=== PATIENT | female | born 1950 | race African-American/Black ===

== ENCOUNTER 2017-02-11 15:40 | Emergency (ER) | payer OTHER ==
[~2017-02-11 15:40] MED LIST: AMLO2.5T PO; BENA40TA PO; FURO40TA PO; GABA300C5 PO; GLIP10TA6 PO; KLOR8TAB PO; METF1000 PO; PRAV20TA2 PO; VITA1000 PO
[2017-02-11 15:43] VITALS: BP 165/85; PULSE 90; RESP 15; TEMP 97.8; O2SAT 95
[2017-02-11] MEDS ORDERED: ASPIRIN 81 MG CHEW TAB PO ONE (16:00)
--- NOTE | 2017-02-11 16:21 | RADRPT ---
EXAM DATE/TIME: 02/11/2017 16:12 [place] COMPARISON: No previous studies available for comparison. INDICATIONS : Patient complains of chest pain. MEDICAL HISTORY : Diabetes mellitus type II. SURGICAL HISTORY : None. ENCOUNTER: Initial ACUITY: 1 week PAIN SCORE: 6/10 LOCATION: chest FINDINGS: PA and lateral views of the chest demonstrate the lungs to be symmetrically aerated without evidence of mass, infiltrate or effusion. The cardiomediastinal contours are unremarkable. Osseous structure s are intact. CONCLUSION: No acute disease. Gerber Sandhu Jr., MD on February 11, 2017 at 16:19 Board Certified Radiologist. This report was verified electronically.
[2017-02-11 17:07] LABS: AUTOMATED NEUTROPHIL # 2.8 TH/MM3 (1.8-7.7); BASOPHIL % 0.6 % (0.0-2.0); EOSINOPHIL # 0.2 TH/MM3 (0-0.4); EOSINOPHIL % 2.7 % (0.0-4.0); HEMATOCRIT 37.2 % (35.0-46.0); HEMOGLOBIN 12.4 GM/DL (11.6-15.3); LYMPH % 42.2 % (9.0-44.0); LYMPHOCYTE # 2.6 TH/MM3 (1.0-4.8); MEAN CELL VOLUME 88.1 FL (80.0-100.0); MEAN CORPUSCULAR HEMOGLOBIN 29.3 PG (27.0-34.0); MEAN CORPUSCULAR HGB CONC 33.3 % (32.0-36.0); MEAN PLATELET VOLUME 8.2 FL (7.0-11.0); MONO % 8.3 % (0.0-8.0); MONOCYTE # 0.5 TH/MM3 (0-0.9); NEUT % 46.2 % (16.0-70.0); PLATELET COUNT 372 TH/MM3 (150-450); RED BLOOD COUNT 4.22 MIL/MM3 (4.00-5.30); RED CELL DISTRIBUTION WIDTH 13.8 % (11.6-17.2); WHITE BLOOD COUNT 6.1 TH/MM3 (4.0-11.0)
[2017-02-11 17:24] LABS: ALBUMIN 3.7 GM/DL (3.4-5.0); ALT (GPT) 15 U/L (10-53); AST (GOT) 8 U/L (15-37); BICARBONATE 25.8 MEQ/L (21.0-32.0); BLOOD UREA NITROGEN 10 MG/DL (7-18); CALCIUM 8.9 MG/DL (8.5-10.1); CHLORIDE 106 MEQ/L (98-107); CREATININE 0.64 MG/DL (0.50-1.00); GLOMERULAR FILTRATION RATE 113 ML/MIN (>89); GLUCOSE,RANDOM 78 MG/DL (74-106); LIPASE 220 U/L (73-393); MAGNESIUM 1.8 MG/DL (1.5-2.5); SODIUM (NA) 139 MEQ/L (136-145)
[2017-02-11 17:28] LABS: ALKALINE PHOSPHATASE 93 U/L (45-117); TOTAL BILIRUBIN ADULT 0.2 MG/DL (0.2-1.0); TOTAL PROTEIN 7.8 GM/DL (6.4-8.2); TROPONIN I LESS THAN 0.02 NG/ML (0.02-0.05)
--- NOTE | 2017-02-11 19:31 | PD ---
HPI Chief Complaint: Cardiac Complaint Time Seen by Provider: 18:34 Travel History International Travel<30 days: No Contact w/Intl Traveler<30days: No Traveled to known affect area: No History of Present Illness HPI 66-year-old female presents to the emergency room for evaluation of chest pain and headache for the past week. Patient states symptoms started after starting gabapentin for chronic right hip pain/sciatica. States she has been increasing her dose gradually over the past week. Denies any heart or lung problems. Denies fevers or significant cough. She has had some episodes of chills that she attributed to "being old." Today, she experienced sharp, sudden, substernal chest pain that felt extremity struck her in the chest. She has associated diaphoresis and shortness of breath at that time. No nausea or vomiting. PFSH Past Medical History Arthritis: No Asthma: Yes Autoimmune Disease: No Anxiety: Yes Heart Rhythm Problems: No Cardiac Catheterization: No Cardiovascular Problems: Yes (HTN) High Cholesterol: Yes Chest Pain: Yes Congestive Heart Failure: No COPD: No Cerebrovascular Accident: No Diabetes: Yes Patient Takes Glucophage: Yes Diminished Hearing: No GERD: Yes Glaucoma: No Hepatitis: No Hiatal Hernia: No Hypertension: Yes Kidney Stones: No Musculoskeletal: Yes Respiratory: Yes (ASTHMA CHILD) Myocardial Infarction: No Renal Failure: No Seizures: No Sleep Apnea: No Thyroid Disease: No Ulcer: No Tetanus Vaccination: Unknown Influenza Vaccination: No Menopausal: Yes : 2 Para: 2 Past Surgical History Section: Yes Coronary Artery Bypass Graft: No Genitourinary Surgery: No Gynecologic Surgery: Yes (C SECTIONS) Family History Family Myocardial Infarction: No Social History Alcohol Use: No Tobacco Use: No Substance Use: No Allergies-Medications (Allergen,Severity, Reaction): Coded Allergies: doxycycline (Unverified Allergy, Severe, Hives, 02/11/17) minocycline (Unverified Allergy, Severe, Hives, 02/11/17) tigecycline (Unverified Allergy, Severe, Hives, 02/11/17) empagliflozin (Verified Allergy, Unknown, 02/11/17) Reported Meds & Prescriptions Reported Meds & Active Scripts Active Gabapentin 300 Mg Cap 300 Mg PO TID 1 tablet PO QHS X 3 days Then 1 PO BID X 3 days Then 1 PO TID Reported Vitamin D-1000 (Cholecalciferol) 1,000 Unit Tab 1,000 Units PO DAILY Klor-Con 8 (Potassium Chloride) 8 Meq Tab 8 Meq PO DAILY Furosemide 40 Mg Tab 40 Mg PO DAILY Benazepril (Benazepril HCl) 40 Mg Tab 40 Mg PO DAILY Amlodipine (Amlodipine Besylate) 2.5 Mg Tab 2.5 Mg PO DAILY Pravastatin 20 Mg Tab 20 Mg PO DAILY Glipizide 10 Mg Tab 10 Mg PO DAILY Take 30 minutes before a meal Metformin (Metformin HCl) 1,000 Mg Tab 1,000 Mg PO BIDPC Review of Systems Except as stated in HPI: all other systems reviewed are Neg Physical Exam Narrative GENERAL: Well-nourished, morbidly obese female in no acute distress. Afebrile. Ambulatory. SKIN: Focused skin assessment warm/dry. HEAD: Normocephalic. EYES: No scleral icterus. No injection or drainage. NECK: Supple, trachea midline. No JVD or lymphadenopathy. CARDIOVASCULAR: Regular rate and rhythm without murmurs, gallops, or rubs. RESPIRATORY: Breath sounds equal bilaterally. No accessory muscle use. MUSCULOSKELETAL: No cyanosis. Mild 1+ pitting edema to bilateral lower extremities. Data Data Last Documented VS Vital Signs Date Time Temp Pulse Resp B/P (MAP) Pulse Ox O2 Delivery O2 Flow Rate FiO2 02/11/17 15:43 97.8 90 15 165/85 (111) 95 Orders Orders Electrocardiogram (02/11/17 15:48) Ckmb (Isoenzyme) Profile (02/11/17 15:48) Complete Blood Count With Diff (02/11/17 15:48) Comprehensive Metabolic Panel (02/11/17 15:48) Magnesium (Mg) (02/11/17 15:48) Prothrombin Time / Inr (Pt) (02/11/17 15:48) Act Partial Throm Time (Ptt) (02/11/17 15:48) Troponin I (02/11/17 15:48) Lipase (02/11/17 15:48) Aspirin Chew (Aspirin Chew) (02/11/17 16:00) Chest, Pa & Lat (02/11/17 15:48) Troponin I (02/11/17 19:46) Ed Discharge Order (02/11/17 20:58) Labs Laboratory Tests Test 02/11/17 16:46 02/11/17 20:15 White Blood Count 6.1 TH/MM3 Red Blood Count 4.22 MIL/MM3 Hemoglobin 12.4 GM/DL Hematocrit 37.2 % Mean Corpuscular Volume 88.1 FL Mean Corpuscular Hemoglobin 29.3 PG Mean Corpuscular Hemoglobin Concent 33.3 % Red Cell Distribution Width 13.8 % Platelet Count 372 TH/MM3 Mean Platelet Volume 8.2 FL Neutrophils (%) (Auto) 46.2 % Lymphocytes (%) (Auto) 42.2 % Monocytes (%) (Auto) 8.3 % Eosinophils (%) (Auto) 2.7 % Basophils (%) (Auto) 0.6 % Neutrophils # (Auto) 2.8 TH/MM3 Lymphocytes # (Auto) 2.6 TH/MM3 Monocytes # (Auto) 0.5 TH/MM3 Eosinophils # (Auto) 0.2 TH/MM3 Basophils # (Auto) 0.0 TH/MM3 CBC Comment DIFF FINAL Differential Comment Blood Urea Nitrogen 10 MG/DL Creatinine 0.64 MG/DL Random Glucose 78 MG/DL Total Protein 7.8 GM/DL Albumin 3.7 GM/DL Calcium Level 8.9 MG/DL Magnesium Level 1.8 MG/DL Alkaline Phosphatase 93 U/L Aspartate Amino Transf (AST/SGOT) 8 U/L Alanine Aminotransferase (ALT/SGPT) 15 U/L Total Bilirubin 0.2 MG/DL Sodium Level 139 MEQ/L Potassium Level 3.9 MEQ/L Chloride Level 106 MEQ/L Carbon Dioxide Level 25.8 MEQ/L Anion Gap 7 MEQ/L Estimat Glomerular Filtration Rate 113 ML/MIN Total Creatine Kinase 78 U/L Troponin I LESS THAN 0.02 NG/ML LESS THAN 0.02 NG/ML Lipase 220 U/L [facility] Medical Decision Making Medical Screen Exam Complete: Yes Emergency Medical Condition: Yes Medical Record Reviewed: Yes Differential Diagnosis GERD, CAD, pneumonia Narrative Course 66-year-old female presents to the emergency room for evaluation of substernal chest pain, diaphoresis, and shortness of breath that occurred while at the store earlier today. Patient is asymptomatic this time. Critical labs and EKG ordered while patient in triage. EKG shows sinus rhythm rate 83 beats for minute. No concerning ST changes. Signed off by an attending physician. CBC and CMP are completely unremarkable. Lipase 220. Troponin is less than 0.02. Patient was reassured and offered admission to the chest pain center to have a cardiac workup but declined. Patient states she has had several workups and they have never shown anything. States that if her labs look okay, she would like to go home so she can follow-up for her outpatient CT tomorrow. It was recommended she stay for a second troponin which she is agreeable to. Second troponin is less than 0.02. Patient was reassured and told to return immediately for worsening symptoms. She understands and agrees to plan. Diagnosis Primary Impression: Chest pain Qualified Codes: R07.89 - Other chest pain Referrals: Primary Care Physician Additional Instructions: Follow-up with primary care physician. Return to the emergency room for any worsening symptoms. Disposition: 01 DISCHARGE HOME Condition: Stable Belen Sellers Feb 11, 2017 19:31
--- NOTE | 2017-02-12 15:26 | EKG ---
Date Performed: 02/11/2017 Time Performed: 16:52:48 PTAGE: 66 years EKG: Sinus rhythm LOW QRS VOLTAGE IN PRECORDIAL LEADS NONSPECIFIC T-WAVE ABNORMALITY BORDERLINE ECG PREVIOUS TRACING : 12/14/2015 13.02 Compared to prior tracing no significant change DOCTOR: Krishna Robert Interpretating Date/Time 02/12/2017 15:24:45
[2017-02-25] MEDS ORDERED: AMIT25TA9 PO (13:33)
== END 2017-02-11 22:31 | disposition home or self-care (01) ==
LOC: NEPE 15:40
DX: R07.9 Chest pain, unspecified (principal); R51 Headache; M25.551 Pain in right hip; R61 Generalized hyperhidrosis; I10 Essential (primary) hypertension; E78.00 Pure hypercholesterolemia, unspecified; E11.9 Type 2 diabetes mellitus without complications; F41.9 Anxiety disorder, unspecified; J45.909 Unspecified asthma, uncomplicated
CPT/HCPCS: 71020; 80053; 82550; 83690; 83735; 84484; 85025; 93005; 99285

== ENCOUNTER 2018-02-11 10:16 | Inpatient (IN) ==
[2018-02-11] MEDS ORDERED: Vancomycin Inj 1,500 MG in Sodium Chlor 0.9% Inj 500 ML IV.SIG STA (10:50)
[2018-02-11] MEDS ORDERED: Acetaminophen 325 MG Tablet PO ONE ×3 (10:50→18:46)
[2018-02-11] MEDS ORDERED: Morphine Inj 4 MG/ML Vial IV.PUSH ONE ×2 (10:50→14:45)
[2018-02-11] MEDS ORDERED: Piperacil/Tazo 4.5 GM Premix 4.5 GM/100 ML BAG IV.SIG STA (10:50)
[2018-02-11] MEDS ORDERED: Sod Chloride 0.9% Inj 1,000 ML IV.SIG SCH ×3 (11:00)
[2018-02-11 11:41] LABS: Alanine Aminotransferase 13 U/L (10-53)
[2018-02-11 11:44] LABS: Albumin 3.3 g/dL (3.4-5.0); Alkaline Phosphatase 99 U/L (45-117); Anion Gap 9 meq/L (5-15); Aspartate Aminotransferase 15 U/L (15-37); Baso # (Auto) 0.1 th/mm3 (0.0-0.2); Baso % (Auto) 0.5 % (0.0-2.0); Blood Urea Nitrogen 8 mg/dL (7-18); Calcium 8.9 mg/dL (8.5-10.1); Carbon Dioxide 23.5 meq/L (21.0-32.0); Chloride 98 meq/L (98-107); Glomerular Filtration Rate 80 mL/min (>89); Glucose,Random 272 mg/dL (74-106); Hematocrit 36.7 % (35.0-46.0); Hemoglobin 12.3 gm/dL (11.6-15.3); Lymph # (Auto) 1.3 th/mm3 (1.0-4.8); Lymph % (Auto) 10.9 % (9.0-44.0); Magnesium 1.6 mg/dL (1.5-2.5); Mean Corpuscular HGB Conc 33.6 % (32.0-36.0); Mean Corpuscular Hemoglobin 29.7 pg (27.0-34.0); Mean Corpuscular Volume 88.3 fL (80.0-100.0); Mean Platelet Volume 8.5 fL (7.0-11.0); Mono # (Auto) 0.9 th/mm3 (0.0-0.9); Mono % (Auto) 7.2 % (0.0-8.0); Neut # (Auto) 9.7 th/mm3 (1.8-7.7); Neut % (Auto) 81.4 % (16.0-70.0); Platelet Count 412 th/mm3 (150-450); Red Blood Count 4.15 mil/mm3 (4.00-5.30); Red Cell Distribution Width 15.2 % (11.6-17.2); Sodium 130 meq/L (136-145); Total Protein 8.5 g/dL (6.4-8.2); White Blood Count 11.9 th/mm3 (4.0-11.0)
[2018-02-11 11:46] LABS: Potassium 4.7 meq/L (3.5-5.1)
--- NOTE | 2018-02-11 11:56 | ED ---
HPI General Chief Complaint: Fever Stated Complaint: Fever Complaint Time Seen by Provider: 02/11/18 10:26 Source: patient and family Limitations: no limitations History of Present Illness HPI Narrative: Patient is a 67-year-old female, past medical history significant for thoracic spinal stenosis status post laminectomy with previous abscess drained 1 month ago with resultant neurogenic ladder and bowel, who presents with complaint of fever. She began to have a fever last night. She does have generalized weakness and has a slight cough with darker urine than normal but does not have any abdominal pain/chest pain. She does have chronic back pain and thinks it might be worse. MD complaint: Reports fever Onset (ago): hour(s) Temperature Source: oral Associated symptoms: Reports chills Relieving factors: nothing Exacerbating factors: nothing Treatments prior to arrival fever: Reports none Related Data Previous Rx's Medication Instructions Recorded baclofen 20 mg PO 0000,0600,1200,1800 30 01/27/18 Days #120 tab bisacodyl [Bisac-Evac] 10 mg [place] EVERY OTHER DAY@0900 30 01/27/18 Days each guaifenesin [Mucinex] 600 mg PO BID 30 Days #60 tab 01/27/18 ibuprofen 600 mg PO Q6HR PRN 30 Days tab 01/27/18 lisinopril 10 mg PO DAILY 30 Days #30 tab 01/27/18 melatonin 5 mg PO HS PRN 30 Days tab 01/27/18 metformin [Glucophage] 1,000 mg PO BID 30 Days #60 tab 01/27/18 psyllium husk (aspartame) 1 pack PO BID 30 Days each 01/27/18 [Metamucil Fiber Singles] sennosides [Senna Lax] 17.2 mg PO Q12H PRN 30 Days tab 01/27/18 tizanidine [Zanaflex] 4 mg PO BID@08,14 30 Days tab 01/27/18 tizanidine [Zanaflex] 6 mg PO HS 30 Days #45 tab 01/28/18 tramadol [Ultram] 50 mg PO Q8H PRN #21 tab 01/28/18 Allergies Allergy/AdvReac Type Severity Reaction Status Date / Time doxycycline Allergy Severe Hives Verified 02/11/18 10:34 minocycline Allergy Severe Hives Verified 02/11/18 10:34 Tetracyclines Allergy Severe Hives Verified 02/11/18 10:34 tigecycline Allergy Severe Hives Verified 02/11/18 10:34 empagliflozin Allergy Unknown Rash Verified 02/11/18 10:34 Review of Systems ROS: all other systems reviewed are negative [facility] Medical History Medical History Hyperlipemia (Chronic) Hypertension (Chronic) Diabetes (Chronic) Abscess after procedure (Acute) Surgical History Surgical History Hx of tubal ligation (Acute) Previous back surgery (Acute) Family History Family History Other Family history of diabetes mellitus Family history of hypertension Social History Social History Substance History: No History of Abuse Second Hand Smoke Exposure: No Smoking Status: Former smoker Tobacco Type: Cigarettes How Often Do You Have a Drink Containing Alcohol: Never Hx Recent Travel: No Recent Travel in [facility] within the Last 8 Weeks: No Recent Out of Country Travel within the Last 8 Weeks: No Immunization History Tetanus Immunization: >5 Years Exam Narrative Exam Narrative: GENERAL: Well-appearing female in no acute distress SKIN: Focused skin assessment warm/dry. Chronic wounds to the bilateral feet with what appears to be possible dry gangrene of some of the toes of the left foot. HEAD: Atraumatic. Normocephalic. EYES: Pupils equal and round. No scleral icterus. No injection or drainage. ENT: No nasal bleeding or discharge. Mucous membranes pink and moist. NECK: Trachea midline. No JVD. CARDIOVASCULAR: Tachycardic but regular. No murmur appreciated. Intact and equal peripheral pulses. RESPIRATORY: No accessory muscle use. Clear to auscultation. Breath sounds equal bilaterally. GASTROINTESTINAL: Abdomen soft, non-tender, nondistended. Hepatic and splenic margins not palpable. MUSCULOSKELETAL: No clubbing. No edema. Contractures of the lower extremities. NEUROLOGICAL: Awake and alert. No obvious cranial nerve deficits. Able to wiggle toes. Normal speech. PSYCHIATRIC: Appropriate mood and affect; insight and judgment normal. Course Initial Documented Vital Signs Temperature 103 F H 02/11/18 10:27 Pulse Rate 154 H 02/11/18 10:27 Respiratory Rate 24 02/11/18 10:27 Blood Pressure 211/91 H 02/11/18 10:27 Pulse Oximetry 99 02/11/18 10:27 Last Documented Vital Signs Temperature 100.6 F H 02/11/18 14:12 Pulse Rate 122 H 02/11/18 15:01 Respiratory Rate 18 02/11/18 15:01 Blood Pressure 150/66 H 02/11/18 15:01 Pulse Oximetry 98 02/11/18 15:01 Medical Decision Making MDM Narrative Medical decision making narrative: Patient is a 67-year-old female who presents with complain of fever. She is tachycardic, febrile, tachypneic on arrival and sepsis protocol was initiated. She was empirically given antibiotics and 30 cc/ kg of fluids. Her blood pressure has remained stable but her heart rate has been tachycardic throughout her time in the emergency department. Labs are consistent with sepsis and UA is concerning for infection. MRIs of the spine shows some edema but no definitive abscess. I spoke with Dr. Muñiz, neurosurgeon on-call, who asked me to place a consult order and admit to 1 of the medical services as he will see the patient on that service. Patient's initial heart rate was in the 150s then dropped down to the 120s temporarily. Upon arrival back from MRI to increase again to the 140s then the 160s. She was shivering at that time though her temperature was only 100.6 and this made it extremely difficult to see what tachycardic rhythm she was in. It appears to be sinus tachycardia though again it is very difficult. Nonetheless that she has been stable she is receiving 5 mg metoprolol IV push in an attempt to control this in case this is an SVT versus atrial fibrillation/flutter. She will be admitted for further evaluation and management. Medical Screen Exam Complete: Yes Emergency Medical Condition: Yes Differential Diagnosis Differential Diagnosis: Differential diagnosis includes but is not limited to sepsis, UTI, pneumonia, influenza, epidural abscess. Medical Records Medical records reviewed: Yes I reviewed the patient's medical records. Lab Data Lab results reviewed: Yes I reviewed the patient's lab results. Result diagrams: 02/11/18 11:00 02/11/18 11:00 Lab Results 02/11/18 02/11/18 02/11/18 Range/Units 11:00 11:00 11:00 WBC 11.9 H (4.0-11.0) th/mm3 RBC 4.15 (4.00-5.30) mil/mm3 Hgb 12.3 (11.6-15.3) gm/dL Hct 36.7 (35.0-46.0) % MCV 88.3 (80.0-100.0) fL MCH 29.7 (27.0-34.0) pg MCHC 33.6 (32.0-36.0) % RDW 15.2 (11.6-17.2) % Plt Count 412 (150-450) th/mm3 MPV 8.5 (7.0-11.0) fL Neut % (Auto) 81.4 H (16.0-70.0) % Lymph % (Auto) 10.9 (9.0-44.0) % [place] % (Auto) 7.2 (0.0-8.0) % Eos % (Auto) 0.0 (0.0-4.0) % Baso % (Auto) 0.5 (0.0-2.0) % Neut # (Auto) 9.7 H (1.8-7.7) th/mm3 Lymph # (Auto) 1.3 (1.0-4.8) th/mm3 [place] # (Auto) 0.9 (0.0-0.9) th/mm3 Eos # (Auto) 0.0 (0.0-0.4) th/mm3 Baso # (Auto) 0.1 (0.0-0.2) th/mm3 WBC Differential . Differential Comment Auto diff final Sodium 130 L (136-145) meq/L Potassium 4.7 (3.5-5.1) meq/L Chloride 98 (98-107) meq/L Carbon Dioxide 23.5 (21.0-32.0) meq/L Anion Gap 9 (5-15) meq/L BUN 8 (7-18) mg/dL Creatinine 0.86 (0.50-1.00) mg/dL Estimated GFR 80 L (>89) mL/min Random Glucose 272 H (74-106) mg/dL Lactic Acid 2.5 H (0.4-2.0) mmol/L Calcium 8.9 (8.5-10.1) mg/dL Magnesium 1.6 (1.5-2.5) mg/dL Total Bilirubin 0.8 (0.2-1.0) mg/dL AST 15 (15-37) U/L ALT 13 (10-53) U/L Alkaline Phosphatase 99 (45-117) U/L Total Protein 8.5 H (6.4-8.2) g/dL Albumin 3.3 L (3.4-5.0) g/dL Urine Color (Yellw/Straw) Urine Clarity (Clear) Urine pH (5.0-8.5) Ur Specific [place] (1.002-1.035) Urine Protein (Neg-Trace) mg/dL Urine Glucose (UA) (Negative) mg/dL Urine Ketones (Negative) mg/dL Urine Occult Blood (Negative) Urine Nitrate (Negative) Urine Bilirubin (Negative) Urine Urobilinogen (Less than 2) mg/dL Ur Leukocyte Esterase (Negative) Urine RBC (0-3) /hpf Urine WBC (0-5) /hpf Ur Squamous Epith Cells (0-5) /hpf Urine Bacteria (None) /hpf Urine Mucus (Occasional) /lpf Micro UA Comment Ur Microscopic Review Urine Culture Comments 02/11/18 02/11/18 Range/Units 11:31 14:33 WBC (4.0-11.0) th/mm3 RBC (4.00-5.30) mil/mm3 Hgb (11.6-15.3) gm/dL Hct (35.0-46.0) % MCV (80.0-100.0) fL MCH (27.0-34.0) pg MCHC (32.0-36.0) % RDW (11.6-17.2) % Plt Count (150-450) th/mm3 MPV (7.0-11.0) fL Neut % (Auto) (16.0-70.0) % Lymph % (Auto) (9.0-44.0) % [place] % (Auto) (0.0-8.0) % Eos % (Auto) (0.0-4.0) % Baso % (Auto) (0.0-2.0) % Neut # (Auto) (1.8-7.7) th/mm3 Lymph # (Auto) (1.0-4.8) th/mm3 [place] # (Auto) (0.0-0.9) th/mm3 Eos # (Auto) (0.0-0.4) th/mm3 Baso # (Auto) (0.0-0.2) th/mm3 WBC Differential Differential Comment Sodium (136-145) meq/L Potassium (3.5-5.1) meq/L Chloride (98-107) meq/L Carbon Dioxide (21.0-32.0) meq/L Anion Gap (5-15) meq/L BUN (7-18) mg/dL Creatinine (0.50-1.00) mg/dL Estimated GFR (>89) mL/min Random Glucose (74-106) mg/dL Lactic Acid 2.1 H (0.4-2.0) mmol/L Calcium (8.5-10.1) mg/dL Magnesium (1.5-2.5) mg/dL Total Bilirubin (0.2-1.0) mg/dL AST (15-37) U/L ALT (10-53) U/L Alkaline Phosphatase (45-117) U/L Total Protein (6.4-8.2) g/dL Albumin (3.4-5.0) g/dL Urine Color Yellow (Yellw/Straw) Urine Clarity Hazy H (Clear) Urine pH 6.0 (5.0-8.5) Ur Specific [place] 1.020 (1.002-1.035) Urine Protein 30 H (Neg-Trace) mg/dL Urine Glucose (UA) 500 or greater (Negative) mg/dL Urine Ketones 20 (Negative) mg/dL Urine Occult Blood Small H (Negative) Urine Nitrate Negative (Negative) Urine Bilirubin Negative (Negative) Urine Urobilinogen 0.2 (Less than 2) mg/dL Ur Leukocyte Esterase Large H (Negative) Urine RBC 5 H (0-3) /hpf Urine WBC 70 H (0-5) /hpf Ur Squamous Epith Cells 1 (0-5) /hpf Urine Bacteria Moderate H (None) /hpf Urine Mucus Few H (Occasional) /lpf Micro UA Comment Cath-culture ind Ur Microscopic Review Not Reportable Urine Culture Comments Cath-cult indicated Imaging Data Attestation: I personally reviewed and interpreted this imaging study as follows : Radiologist's impression: Chest X-Ray 02/11/18 10:50 CONCLUSION: No acute cardiopulmonary abnormality is identified. Foot X-Ray 02/11/18 10:50 CONCLUSION: Diffusely under mineralized bones from uncertain etiology. No acute abnormality is identified. Foot X-Ray 02/11/18 10:50 CONCLUSION: Diffusely under mineralized bones from uncertain etiology. No acute abnormality is identified. Lumbar Spine MRI 02/11/18 10:50 CONCLUSION: 1. Stable examination of the lumbar spine compared to the 01/27/2018 examination. There is edema and enhancement within the posterior paraspinal tissues at the L2-L3 level and extending inferiorly to L4-L5. No abscess is identified. The fluid collection originally described on the 12/31/2017 examination has resolved. 2. There appears to be calcification/ossification posterior to the L1-L4 vertebral bodies, stable from the prior study. This has mass effect on the thecal sac but no high-grade canal stenosis is present. Thoracic Spine MRI 02/11/18 10:50 CONCLUSION: 1. Persistent canal compromise at T4-5. 2. Persistent signal changes in the cord. 3. Enhancement in the dorsal soft tissues along the operative approach without definite evidence of abscess. ECG Data EKG Prior to Arrival: No Attestation: I personally reviewed and interpreted this ECG as follows: (Sinus tachycardia at a rate of [address] depression likely secondary to demand. No other ST or T wave changes.) Discharge Plan Discharge Disposition Patient Disposition: ED Admit(ED Internal Use Only) Discharge Condition Condition: Serious Discharge Order Discharge Orders: ED Use Only Admit Order (Routine); Ordered 02/11/18 Ordered By: Carleen Ordoñez Discharge Details Diagnosis: Sepsis, Acute UTI Physicians Team ED Provider: Carleen Ordoñez Primary Care Provider: Wesly Gonzalez Attending Provider: Randa King Other Providers: Carrillo Muñiz Status ED Status: Admitted Patient
--- NOTE | 2018-02-11 12:06 | XR ---
EXAM DATE: 02/11/2018 11:50 AM EST AGE/SEX: 67 years / Female INDICATIONS: Fever CLINICAL DATA: This is the patient's initial encounter. Patient reports that signs and symptoms have been present for 2 days and indicates a pain score of 0/10. MEDICAL/SURGICAL HISTORY: . Diabetes mellitus type II. Hypertension. . section. Tho racic and lumbar surgery COMPARISON: [facility], CHEST 1V SINGLE AP, 01/09/2018. . FINDINGS: Portable AP view of the chest demonstrates a normal-sized cardiac silhouette. No effusion, consolidat ion, or pneumothorax is identified. The bones and soft tissues demonstrate no acute finding. CONCLUSION: No acute cardiopulmonary abnormality is identified. Electronically signed by: Forrest Beal MD Board Certified Radiologist 02/11/2018 12:04 PM EST
--- NOTE | 2018-02-11 12:09 | XR ---
EXAM DATE: 02/11/2018 11:56 AM EST AGE/SEX: 67 years / Female INDICATIONS: Right foot pain, possible infection. Denies injury CLINICAL DATA: This is the patient's initial encounter. Patient reports that signs and symptoms have been present for 1 day and indicates a pain score of Nonresponsive. MEDICAL/SURGICAL HISTORY: . Diabetes mellitus type II. Hypertension . section. Thora cic and lumbar surgery COMPARISON: [facility], FOOT LIMITED RIGHT 2V, 01/25/2018. . FINDINGS: 3 views of the right foot demonstrate heterogeneous diffuse undermineralization of the bones. No frac ture or dislocation is identified. Lisfranc joint appears intact. No soft tissue abnormality or radio paque foreign body is identified. CONCLUSION: Diffusely under mineralized bones from uncertain etiology. No acute abnormality is identified. Electronically signed by: Forrest Beal MD Board Certified Radiologist 02/11/2018 12:07 PM EST
--- NOTE | 2018-02-11 12:17 | XR ---
EXAM DATE: 02/11/2018 11:53 AM EST AGE/SEX: 67 years / Female INDICATIONS: Left foot pain, possible infection. Denies injury CLINICAL DATA: This is the patient's initial encounter. Patient reports that signs and symptoms have been present for 1 day and indicates a pain score of Nonresponsive. MEDICAL/SURGICAL HISTORY: . Diabetes mellitus type II. Hypertension. . section. thor acic and lumbar surgery COMPARISON: [facility], FOOT LIMITED LEFT 2V, 01/25/2018. . FINDINGS: 3 views of the left foot demonstrate diffusely under mineralized bones. No fracture or dislocation is identified. Lisfranc joint is intact. There is mild osteoarthritis at the first metatarsophalangeal joint. No soft tissue abnormality or radiopaque foreign body is identified. CONCLUSION: Diffusely under mineralized bones from uncertain etiology. No acute abnormality is identified. Electronically signed by: Forrest Beal MD Board Certified Radiologist 02/11/2018 12:16 PM EST
[2018-02-11 12:49] LABS: Bacteria,Urine Moderate /hpf; Bilirubin,Urine Negative (Negative); Clarity,Urine Hazy (Clear); Color,Urine Yellow (Yellw/Straw); Glucose,Urine (UA) 500 or Greater mg/dL (Negative); Leukocyte Esterase,Urine Large (Negative); Mucus,Urine Few /lpf (Occasional); Nitrite,Urine Negative (Negative); Squamous Epithelial Cell,Urine 1 /hpf (0-5)
[2018-02-11 12:51] LABS: Urobilinogen,Urine 0.2 mg/dL (Less than 2)
--- NOTE | 2018-02-11 13:46 | MR ---
EXAM DATE: 02/11/2018 1:30 PM EST AGE/SEX: 67 years / Female INDICATIONS: Abscess. CLINICAL DATA: This is the patient's subsequent encounter. Patient reports that signs and symptoms h ave been present for 3 days and indicates a pain score of 6/10. MEDICAL/SURGICAL HISTORY: Diabetes mellitus type II. Hypertension. Fusion, thoracic. section. COMPARISON: [facility], MR LUMBAR SPINE W & W/O CONTRAST, 01/27/2018. [facility], MR LUMBAR SPINE W & W/O CO NTRAST, 12/31/2017. . TECHNIQUE: Multiplanar, multisequence MRI examination of the lumbar spine was performed without and with 9.7 ml Gadavist (gadobutrol) contrast as a cumulative dose for multiple exams. FINDINGS: The most caudal-appearing lumbar vertebra is numbered as L5. VERTEBRAE: Bone marrow signal is within normal limits. Vertebral body height is maintained. There is no anterolisthesis or retrolisthesis. There is stable edema and enhancement within the posterior par aspinous tissues extending from L2-L3 inferiorly to L4-L5. CONUS: Normal level and configuration. T12-L1: There is likely mineralization posteriorly but no spinal canal stenosis or neural foraminal stenosis is appreciated. L1-L2: There is mineralization posteriorly but no spinal canal stenosis or neural foraminal stenosis is visualized. L2-L3: There is a broad-based central material in the epidural space that appears similar in signal intensity to. There is moderate facet hypertrophy and there has been prior laminectomy. Lateral reces ses are effaced but there is no spinal canal narrowing. No neural foraminal stenosis is present. L3-L4: There is an abnormality in the anterior epidural space centrally that may represent calcifica tion and there is moderate facet hypertrophy. Laminectomy has been performed. Lateral recesses are ef faced and there is mild narrowing of the spinal canal. No significant neural foraminal stenosis is ap preciated. L4-L5: There is a central disc protrusion with possible mineralization centrally posterior to the L4 vertebral body and there is moderate facet hypertrophy. There has been prior laminectomy at this lev el. Spinal canal is mildly narrowed no significant neural foraminal stenosis is present. L5-S1: Moderate to severe facet hypertrophy. No disc herniation, canal stenosis, or neural foraminal stenosis is identified. Post contrast: There is enhancement within the posterior paraspinal musculature at the levels where a laminectomy has been performed. Other: The visualized surrounding structures demonstrate no acute abnormality. CONCLUSION: 1. Stable examination of the lumbar spine compared to the 01/27/2018 examination. There is edema and enhancement within the posterior paraspinal tissues at the L2-L3 level and extending inferiorly to L4 -L5. No abscess is identified. The fluid collection originally described on the 12/31/2017 examination has resolved. 2. There appears to be calcification/ossification posterior to the L1-L4 vertebral bodies, stable fr om the prior study. This has mass effect on the thecal sac but no high-grade canal stenosis is presen t. Electronically signed by: Forrest Beal MD Board Certified Radiologist 02/11/2018 1:45 PM EST
--- NOTE | 2018-02-11 13:48 | MR ---
EXAM DATE: 02/11/2018 1:37 PM EST AGE/SEX: 67 years / Female INDICATIONS: Abscess. CLINICAL DATA: This is the patient's subsequent encounter. Patient reports that signs and symptoms h ave been present for 1 week and indicates a pain score of 7/10. MEDICAL/SURGICAL HISTORY: Hypertension. Diabetes mellitus type II. Fusion, thoracic. COMPARISON: [facility], MR THORACIC SPINE W & W/O CON, 01/27/2018. . TECHNIQUE: Multiplanar, multisequence MRI of the thoracic spine was performed without and with 9.7 m l Gadavist (gadobutrol) contrast as a cumulative dose for multiple exams. FINDINGS: Postoperative changes are again noted dorsal to the T4-5 disc space where there is persistent moderat e dorsal disc protrusion compressing the thecal sac. There is diffuse enhancement in the operative ti ssues. No discrete fluid signal collection to suggest abscess. Signal changes in the cord are again n oted which may reflect myelomalacia or cord edema. These extend from mid T3 down to mid T5. The remai nder of the thoracic spine is stable and unremarkable. CONCLUSION: 1. Persistent canal compromise at T4-5. 2. Persistent signal changes in the cord. 3. Enhancement in the dorsal soft tissues along the operative approach without definite evidence of abscess. Electronically signed by: Forrest Gallegos MD Board Certified Radiologist 02/11/2018 1:47 PM EST
[2018-02-11] MEDS ORDERED: Gadobutrol PF 10 MMOL/10 ML Vial (for RAD) IV.SIG ONE (14:01)
--- NOTE | 2018-02-11 14:42 | P.CONNS ---
History of Present Illness Service: neurosurg Primary Care Provider: Wesly Gonzalez MD History of Present Illness: Ms Asif is a 67 year old female status post thoracic laminectomy and post operative palsy on November 2017, at [facility]. A month later she developed an epidural abscess and underwent nsurgery at [place] on December 2017 at [place]. She is septic and MRI of the T spine shows possible persistent infection. Upon further evaluation by a neurosurgeon Dr. King, and the emergency room physician Dr. Conrad, and discussion with the family plan for transfer/return to [place], original neurosurgeon Dr. Gutierrez's and team for further care. Coordination for transfer to facility per ED physician Dr. Socorro Conrad. 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 - Medical History Medical History: Medical History (Last Reviewed 02/11/18 @ 11:54 by Carleen Ordoñez MD) Hyperlipemia (Chronic) Hypertension (Chronic) Diabetes (Chronic) Abscess after procedure - Surgical History Surgical History: Surgical History (Last Reviewed 02/11/18 @ 11:54 by Carleen Ordoñez MD) Hx of tubal ligation (Acute) Previous back surgery - Family History Family History: Family History (Last Reviewed 02/11/18 @ 11:54 by Carleen Ordoñez MD) Other Family history of diabetes mellitus Family history of hypertension - Tobacco History Second Hand Smoke Exposure: No Smoking Status: Former smoker Tobacco Type: Cigarettes - Alcohol History How Often Do You Have a Drink Containing Alcohol: Never - Substance Use History Substance History: No History of Abuse - Travel History History of Recent Travel: No Recent Travel in the [place] Within the Last 8 Weeks: No Recent Travel Out of the Country Within the Last 8 Weeks: No - Immunization History Tetanus Immunization: >5 Years Medications and Allergies Active Medications: Active Medications Sodium Chloride (Ns Inj) 1,000 mls @ 0 mls/hr IV.SIG .Q0M LUANN Last Infusion: 02/11/18 13:51 Dose: Infused Sodium Chloride (Ns Inj) 1,000 mls @ 0 mls/hr IV.SIG .Q0M LUANN Last Admin: 02/11/18 11:11 Dose: 999 mls/hr Sodium Chloride (Ns Inj) 1,000 mls @ 0 mls/hr IV.SIG .Q0M LUANN Last Admin: 02/11/18 13:52 Dose: 999 mls/hr Allergies Allergy/AdvReac Type Severity Reaction Status Date / Time doxycycline Allergy Severe Hives Verified 02/11/18 10:34 minocycline Allergy Severe Hives Verified 02/11/18 10:34 Tetracyclines Allergy Severe Hives Verified 02/11/18 10:34 tigecycline Allergy Severe Hives Verified 02/11/18 10:34 empagliflozin Allergy Unknown Rash Verified 02/11/18 10:34 Exam Vital signs: Vital Signs 02/11/18 10:27 02/11/18 10:33 02/11/18 10:59 Temperature 103 F H 103.4 F H Pulse Rate 154 H 153 H Respiratory Rate 24 21 Blood Pressure 211/91 H Pulse Oximetry 99 99 99 02/11/18 12:00 02/11/18 13:52 02/11/18 14:12 Temperature 100.6 F H Pulse Rate 128 H 135 H 147 H Respiratory Rate 20 20 24 Blood Pressure 144/70 H 144/76 H 151/86 H Pulse Oximetry 97 100 98 02/11/18 14:39 Temperature Pulse Rate 165 H Respiratory Rate Blood Pressure Pulse Oximetry Intake & Output 02/10/18 02/11/18 02/11/18 18:59 06:59 18:59 Intake Total 1100 / 1100 Balance 1100 / 1100 Weight 97.069 kg Intake: IV 1100 / 1100 Zosyn 4.5 GM Premix 4.5 gm In 100 / 100 100 ml @ 200 mls/hr IV.SIG STAT STA Rx#:[id number] NS Inj 1,000 ML @ Wide Open IV. 1000 / 1000 SIG .Q0M LUANN Rx#:[id number] Results - Laboratory Findings CBC and BMP: 02/11/18 11:00 02/11/18 11:00 Abnormal lab findings: Abnormal Labs 02/11/18 02/11/18 02/11/18 11:00 11:00 11:00 WBC 11.9 H Neut % (Auto) 81.4 H Neut # (Auto) 9.7 H Sodium 130 L Estimated GFR 80 L Random Glucose 272 H Lactic Acid 2.5 H Total Protein 8.5 H Albumin 3.3 L Urine Clarity Urine Protein Urine Occult Blood Ur Leukocyte Esterase Urine RBC Urine WBC Urine Bacteria Urine Mucus 02/11/18 11:31 WBC Neut % (Auto) Neut # (Auto) Sodium Estimated GFR Random Glucose Lactic Acid Total Protein Albumin Urine Clarity Hazy H Urine Protein 30 H Urine Occult Blood Small H Ur Leukocyte Esterase Large H Urine RBC 5 H Urine WBC 70 H Urine Bacteria Moderate H Urine Mucus Few H Assessment and Plan - Plan I have reviewed the clinical and radiological findings Chest X-Ray 02/11/18 10:50 CONCLUSION: No acute cardiopulmonary abnormality is identified. Foot X-Ray 02/11/18 10:50 CONCLUSION: Diffusely under mineralized bones from uncertain etiology. No acute abnormality is identified. Lumbar Spine MRI 02/11/18 10:50 CONCLUSION: 1. Stable examination of the lumbar spine compared to the 01/27/2018 examination. There is edema and enhancement within the posterior paraspinal tissues at the L2-L3 level and extending inferiorly to L4-L5. No abscess is identified. The fluid collection originally described on the 12/31/2017 examination has resolved. 2. There appears to be calcification/ossification posterior to the L1-L4 vertebral bodies, stable from the prior study. This has mass effect on the thecal sac but no high-grade canal stenosis is present. Thoracic Spine MRI 02/11/18 10:50 CONCLUSION: 1. Persistent canal compromise at T4-5. 2. Persistent signal changes in the cord. 3. Enhancement in the dorsal soft tissues along the operative approach without definite evidence of abscess.
[2018-02-11] MEDS ORDERED: Metoprolol Inj 5 MG/5 ML Vial IV.PUSH ONE (14:50)
[2018-02-11] MEDS ORDERED: Potassium Phosphate Inj 30 MMOL in Sodium Chlor 0.9% Inj 250 ML IV.SIG PRN (15:24)
[2018-02-11] MEDS ORDERED: Acetaminophen 325 MG Tablet PO PRN (15:24)
[2018-02-11] MEDS ORDERED: Magnesium Sulfate Inj 4 GM in Sodium Chlor 0.9% Inj 92 ML IV.SIG PRN (15:24)
[2018-02-11] MEDS ORDERED: Potassium Chloride 25 MEQ Effervescent Tablet PO PRN (15:24)
[2018-02-11] MEDS ORDERED: Magnesium Sulfate Inj 2 GM in Sodium Chlor 0.9% Inj 96 ML IV.SIG PRN (15:24)
[2018-02-11] MEDS ORDERED: Magnesium Oxide 400 MG Tablet PO PRN (15:24)
[2018-02-11] MEDS ORDERED: Potassium Phosphate 500 MG Soluble Tablet PO PRN ×2 (15:24)
[2018-02-11] MEDS ORDERED: Sodium Phosphate Inj 30 MMOL in Sodium Chlor 0.9% Inj 250 ML IV.SIG PRN (15:24)
[2018-02-11] MEDS ORDERED: Potassium Chlor 20 mEq Premix 20 MEQ/100 ML PIGGYBACK IV.SIG PRN ×2 (15:24)
[2018-02-11] MEDS ORDERED: Morphine Sulfate Inj 2 MG/ML Vial IV.PUSH PRN (15:24)
[2018-02-11] MEDS ORDERED: Potassium Chlor 40 mEq Premix 40 MEQ/100 ML PIGGYBACK IV.SIG PRN ×2 (15:24)
[2018-02-11] MEDS ORDERED: Bisacodyl 10 MG Supp RECTAL PRN (15:24)
[2018-02-11] MEDS ORDERED: Sod Chloride 0.9% Inj 1,000 ML IV.CONT SCH (15:30)
--- NOTE | 2018-02-11 15:36 | MR ---
EXAM DATE: 02/11/2018 1:36 PM EST AGE/SEX: 67 years / Female INDICATIONS: Abscess. CLINICAL DATA: This is the patient's initial encounter. Patient reports that signs and symptoms have been present for 1 day and indicates a pain score of 7/10. MEDICAL/SURGICAL HISTORY: Diabetes mellitus type II. Hypertension. Fusion, thoracic. COMPARISON: [facility] [place], MR LUMBAR SPINE W & W/O CONTRAST, 02/11/2018. . TECHNIQUE: Multiplanar, multisequence MRI examination of the cervical spine was performed without an d with 9.7 ml Gadavist (gadobutrol) contrast as a cumulative dose for multiple exams. FINDINGS: Cervical spine alignment is satisfactory. Marrow signal is benign throughout. Cervical cord is normal in morphology and signal intensity. No abnormal contrast enhancement identified. No evidence of absc ess or other collection as questioned. 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 CONCLUSION: No evidence of abscess Electronically signed by: Forrest Gallegos MD Board Certified Radiologist 02/11/2018 3:34 PM EST
--- NOTE | 2018-02-11 15:59 | P.PN ---
Subjective Interval history: 02/11: Critical care medicine initially consulted for admission to ICU. Upon further evaluation by a neurosurgeon Dr. Muñiz,emergency room physician Dr. Conrad , and myself discussion with the family plan for transfer/return to [place] , original neurosurgeon Dr. Gutierrez's and team for further care. Coordination for transfer to facility per ED physician Dr. Socorro Conrad. Physical Exam Vital signs: Vital Signs 02/11/18 10:27 02/11/18 10:33 02/11/18 10:59 Temperature 103 F H 103.4 F H Pulse Rate 154 H 153 H Respiratory Rate 24 21 Blood Pressure 211/91 H Pulse Oximetry 99 99 99 02/11/18 12:00 02/11/18 13:52 02/11/18 14:12 Temperature 100.6 F H Pulse Rate 128 H 135 H 147 H Respiratory Rate 20 20 24 Blood Pressure 144/70 H 144/76 H 151/86 H Pulse Oximetry 97 100 98 02/11/18 14:39 02/11/18 15:01 Temperature Pulse Rate 165 H 122 H Respiratory Rate 18 Blood Pressure 150/66 H Pulse Oximetry 98 Intake & Output 02/10/18 02/11/18 02/11/18 18:59 06:59 18:59 Intake Total 3615 / 3615 Output Total 250 / 250 Balance 3365 / 3365 Weight 97.069 kg Intake: IV 3615 / 3615 Zosyn 4.5 GM Premix 4.5 gm In 100 / 100 100 ml @ 200 mls/hr IV.SIG STAT STA Rx#:[id number] NS Inj 1,000 ML @ Wide Open IV. 3000 / 3000 SIG .Q0M LUANN Rx#:[id number] Vancomycin Inj 1,500 MG In NS 515 / 515 Inj 500 ML @ 250 mls/hr IV.SIG STAT STA Rx#:[id number] Output: Urine 250 / 250 Results - Labs CBC & Chem 7: 02/11/18 11:00 02/11/18 11:00 Laboratory Results - last 24 hr 02/11/18 02/11/18 02/11/18 11:00 11:00 11:00 WBC 11.9 H RBC 4.15 Hgb 12.3 Hct 36.7 MCV 88.3 MCH 29.7 MCHC 33.6 RDW 15.2 Plt Count 412 MPV 8.5 Neut % (Auto) 81.4 H Lymph % (Auto) 10.9 [place] % (Auto) 7.2 Eos % (Auto) 0.0 Baso % (Auto) 0.5 Neut # (Auto) 9.7 H Lymph # (Auto) 1.3 [place] # (Auto) 0.9 Eos # (Auto) 0.0 Baso # (Auto) 0.1 WBC Differential . Differential Comment Auto diff final Sodium 130 L Potassium 4.7 Chloride 98 Carbon Dioxide 23.5 Anion Gap 9 BUN 8 Creatinine 0.86 Estimated GFR 80 L Random Glucose 272 H Lactic Acid 2.5 H Calcium 8.9 Magnesium 1.6 Total Bilirubin 0.8 AST 15 ALT 13 Alkaline Phosphatase 99 Total Protein 8.5 H Albumin 3.3 L Urine Color Urine Clarity Urine pH Ur Specific [place] Urine Protein Urine Glucose (UA) Urine Ketones Urine Occult Blood Urine Nitrate Urine Bilirubin Urine Urobilinogen Ur Leukocyte Esterase Urine RBC Urine WBC Ur Squamous Epith Cells Urine Bacteria Urine Mucus Micro UA Comment Ur Microscopic Review Urine Culture Comments 02/11/18 02/11/18 11:31 14:33 WBC RBC Hgb Hct MCV MCH MCHC RDW Plt Count MPV Neut % (Auto) Lymph % (Auto) [place] % (Auto) Eos % (Auto) Baso % (Auto) Neut # (Auto) Lymph # (Auto) [place] # (Auto) Eos # (Auto) Baso # (Auto) WBC Differential Differential Comment Sodium Potassium Chloride Carbon Dioxide Anion Gap BUN Creatinine Estimated GFR Random Glucose Lactic Acid 2.1 H Calcium Magnesium Total Bilirubin AST ALT Alkaline Phosphatase Total Protein Albumin Urine Color Yellow Urine Clarity Hazy H Urine pH 6.0 Ur Specific [place] 1.020 Urine Protein 30 H Urine Glucose (UA) 500 or greater Urine Ketones 20 Urine Occult Blood Small H Urine Nitrate Negative Urine Bilirubin Negative Urine Urobilinogen 0.2 Ur Leukocyte Esterase Large H Urine RBC 5 H Urine WBC 70 H Ur Squamous Epith Cells 1 Urine Bacteria Moderate H Urine Mucus Few H Micro UA Comment Cath-culture ind Ur Microscopic Review Not Reportable Urine Culture Comments Cath-cult indicated Microbiology 02/11/18 11:35 Nasal Wash Influenza Types A,B Antigen - Final Negative for FLU A and B antigen Infection due to influenza A or B cannot be ruled out since the antigen present in the sample may be below the detection limit of the test. - Imaging Impressions Cervical Spine MRI 02/11/18 10:50 CONCLUSION: No evidence of abscess Chest X-Ray 02/11/18 10:50 CONCLUSION: No acute cardiopulmonary abnormality is identified. Foot X-Ray 02/11/18 10:50 CONCLUSION: Diffusely under mineralized bones from uncertain etiology. No acute abnormality is identified. Foot X-Ray 02/11/18 10:50 CONCLUSION: Diffusely under mineralized bones from uncertain etiology. No acute abnormality is identified. Lumbar Spine MRI 02/11/18 10:50 CONCLUSION: 1. Stable examination of the lumbar spine compared to the 01/27/2018 examination. There is edema and enhancement within the posterior paraspinal tissues at the L2-L3 level and extending inferiorly to L4-L5. No abscess is identified. The fluid collection originally described on the 12/31/2017 examination has resolved. 2. There appears to be calcification/ossification posterior to the L1-L4 vertebral bodies, stable from the prior study. This has mass effect on the thecal sac but no high-grade canal stenosis is present. Thoracic Spine MRI 02/11/18 10:50 CONCLUSION: 1. Persistent canal compromise at T4-5. 2. Persistent signal changes in the cord. 3. Enhancement in the dorsal soft tissues along the operative approach without definite evidence of abscess.
--- NOTE | 2018-02-11 18:01 | ECG ---
Date Performed: 02/11/2018 Time Performed: 10:28:10 PTAGE: 67 years EKG: SVT WITH RATE 153, THIS MAY BE SINUS TACHYCARDIA LOW QRS VOLTAGE IN PRECORDIAL LEADS DIFFUS E NONSPECIFIC ST-T CHANGE Compared to previous tracing, the rapid heart rate is new. ST-T changes sli ghtly more prominent. ABNORMAL RHYTHM ECG PREVIOUS TRACING : 02/11/2017 16.52 DOCTOR: Philippe Whitten Interpretating Date/Time 02/11/2018 18:00:35
[2018-02-11 18:12] VITALS: BP 142/63; PULSE 120; RESP 19; O2SAT 100
[2018-02-11 18:45] VITALS: TEMP 100.1
[2018-02-11] MEDS ORDERED: Senna/Docusate Sodium 8.6/50 MG Tablet PO SCH (21:00)
[2018-02-11] MEDS ORDERED: Famotidine PF Inj 20 MG/2 ML Vial IV.PUSH SCH (21:00)
[2018-02-12] MEDS ORDERED: Chlorhexidine Gluconate 2% 1 Pack (2 Cloths) TOPICAL SCH (04:00)
[2018-02-12] MEDS ORDERED: Chlorhexidine Gluconate 2% 1 Pack (2 Cloths) TOPICAL PRN (04:00)
--- NOTE | 2018-02-12 09:55 | ECG ---
Date Performed: 02/11/2018 Time Performed: 14:49:26 PTAGE: 67 years EKG: SUPRAVENTRICULAR TACHYCARDIA NONSPECIFIC ST & T-WAVE ABNORMALITY ABNORMAL RHYTHM ECG NO PREVIOUS TRACING DOCTOR: Tamir Wang Interpretating Date/Time 02/12/2018 09:54:05
--- NOTE | 2018-02-12 09:55 | ECG ---
Date Performed: 02/11/2018 Time Performed: 14:17:30 PTAGE: 67 years EKG: SINUS TACHYCARDIA, POSSIBLE ATRIAL FLUTTER ABNORMAL RHYTHM ECG PREVIOUS TRACING : 02/11/2018 10.28 DOCTOR: Tamir Wang Interpretating Date/Time 02/12/2018 09:55:21
== END 2018-02-11 21:00 | disposition home or self-care (01) ==
LOC: NEPE 10:16 → NEDA 15:09
PROVIDERS: ADMIT Anesthesiology; ATTEND Anesthesiology